=== PATIENT | male | born 1960 | race Asian ===

== ENCOUNTER 2019-03-18 17:32 | Inpatient (IN) | payer OTHER ==
[2019-03-18] MEDS ORDERED: NACL 0.9% 3 ML SYG IV (18:30)
[2019-03-18] MEDS ORDERED: morphine 2 MG INJ IV (18:30)
[2019-03-18] MEDS ORDERED: DOCUSATE SODIUM 100 MG CAP PO (18:30)
[2019-03-18] MEDS ORDERED: HYDROCODONE/APAP (5/325) TAB PO (18:30)
[2019-03-18] MEDS ORDERED: ONDANSETRON 4 MG INJ IV (18:30)
[2019-03-18] MEDS ORDERED: ZOLPIDEM 5 MG TAB PO (18:30)
[2019-03-18] MEDS ORDERED: ACETAMINOPHEN 325 MG TAB PO (18:30)
[2019-03-18] MEDS ORDERED: GLUCOSE GEL 15 GRAM TUBE PO ×2 (19:00)
[2019-03-18] MEDS ORDERED: GLUCAGON 1 MG INJ IM (19:00)
[2019-03-18] MEDS ORDERED: DEXTROSE 50% 50 ML SYRINGE IV ×2 (19:00)
[2019-03-18] MEDS ORDERED: GLUCOSE GEL 15 GRAM TUBE BUCCAL (19:00)
[2019-03-18] MEDS: SOD CHLORIDE 0.9% 1,000 ML IV (20:22)
[2019-03-18] MEDS: INSULIN ASPART [NOVOLOG] 3 ML PEN SC ×2 (21:05→23:03)
[2019-03-18] MEDS: INSULIN GLARGINE [LANTus] (100 UNITS/ML) SYG SC (23:04)
[2019-03-19] MEDS: ACCU-CHEK XX (02:06)
[2019-03-19] MEDS: SOD CHLORIDE 0.9% 1,000 ML IV ×2 (04:12→05:36)
[2019-03-19 05:29] LABS: ADD MAN DIFF? NO
[2019-03-19 05:36] LABS: WHITE BLOOD COUNT 7.4 10^3/ul (4.8-10.8)
[2019-03-19 05:36] LABS: BASOPHILS % 0.4 % (0.0-2.0); EOSINOPHILS # 0.1 10^3/ul (0.0-0.5); EOSINOPHILS % 1.6 % (0.0-7.0); HEMATOCRIT 30.3 % (42.0-52.0); HEMOGLOBIN 10.4 g/dl (14.0-18.0); LYMPHOCYTES # 1.4 10^3/ul (0.8-2.9); LYMPHOCYTES % 18.3 % (15.0-51.0); MEAN CORPUSCULAR HEMOGLOBIN 31.6 pg (29.0-33.0); MEAN CORPUSCULAR HGB CONC 34.3 g/dl (32.0-37.0); MEAN CORPUSCULAR VOLUME 92.1 fl (82.0-101.0); MEAN PLATELET VOLUME 9.1 fl (7.4-10.4); MONOCYTE # 0.7 10^3/ul (0.3-0.9); MONOCYTES % 8.9 % (0.0-11.0); NEUTROPHIL # 5.2 10^3/ul (1.6-7.5); NEUTROPHILS % 70.1 % (39.0-77.0); PLATELET COUNT 302 10^3/UL (140-415); RED BLOOD COUNT 3.29 10^6/ul (4.70-6.10)
[2019-03-19 05:56] LABS: AMMONIA < 9 umol/l (9-30)
[2019-03-19 06:05] LABS: ANION GAP 8 (5-13); BLOOD UREA NITROGEN 36 mg/dl (7-20); CALCIUM 8.5 mg/dl (8.4-10.2); CARBON DIOXIDE 24 mmol/L (21-31); CHLORIDE 102 mmol/L (97-110); CHOL/HDL RATIO 6.4 RATIO; CHOLESTEROL 193 mg/dl (100-200); CREATININE 2.16 mg/dl (0.61-1.24); Estimated GFR 32 mL/min (>60); GLUCOSE 202 mg/dl (70-220); HDL CHOLESTEROL 30 mg/dl (28-71); LDL CHOLESTEROL,CALCULATED 115 mg/dl; MAGNESIUM 2.1 mg/dl (1.7-2.5); PHOSPHORUS 3.9 mg/dl (2.5-4.9); POTASSIUM 4.1 mmol/L (3.5-5.1); SODIUM 134 mmol/L (135-144); TRIGLYCERIDES 242 mg/dl (0-149)
[2019-03-19] MEDS: INSULIN ASPART [NOVOLOG] 3 ML PEN SC ×6 (08:50→20:31)
[2019-03-19] MEDS ORDERED: hydrALAzine 20 MG INJ (09:54)
[2019-03-19] MEDS: hydrALAzine 20 MG INJ IV (09:58)
[2019-03-19] MEDS: AMLODIPINE 5 MG TAB PO (12:18)
[2019-03-19] MEDS: INSULIN GLARGINE [LANTus] (100 UNITS/ML) SYG SC ×2 (13:30→20:32)
[2019-03-19 17:02] LABS: RAPID PLASMA REAGIN NONREACTIVE (NR)
[2019-03-20] MEDS: SOD CHLORIDE 0.9% 1,000 ML IV ×4 (00:12→21:00)
[2019-03-20 01:16] LABS: CREATININE,URINE RANDOM 59.16 mg/dl (20-370)
[2019-03-20 01:16] LABS: SODIUM,URINE RANDOM 80 mmol/L (30-90)
[2019-03-20 01:21] LABS: ADD UMIC YES; UR ASCORBIC ACID NEGATIVE (NEGATIVE); UR BACTERIA MANY /HPF (NONE SEEN); UR BILIRUBIN (Dip) NEGATIVE (NEGATIVE); UR BLOOD (Dip) 1+ mg/dL (NEGATIVE); UR CLARITY SLIGHTLY CLOUDY (CLEAR); UR COLOR YELLOW (YELLOW); UR GLUCOSE (Dip) 3+ mg/dL (NEGATIVE); UR KETONES (Dip) NEGATIVE (NEGATIVE); UR LEUKOCYTE ESTERASE (Dip) NEGATIVE Leu/ul (NEGATIVE); UR MUCUS FEW /HPF (NONE SEEN); UR NITRITE (Dip) NEGATIVE (NEGATIVE); UR RBC 15 /HPF (0-5); UR SPECIFIC GRAVITY (Dip) 1.012 (1.003-1.030); UR TOTAL PROTEIN (Dip) 2+ mg/dl (NEGATIVE); UR UROBILINOGEN (Dip) NEGATIVE (NEGATIVE); UR WBC 11 /HPF (0-5)
[2019-03-20] MEDS: ACCU-CHEK XX (02:00)
[2019-03-20 06:53] LABS: MAGNESIUM 1.9 mg/dl (1.7-2.5)
[2019-03-20 06:53] LABS: PHOSPHORUS 4.2 mg/dl (2.5-4.9)
[2019-03-20 07:00] LABS: ANION GAP 9 (5-13); BLOOD UREA NITROGEN 34 mg/dl (7-20); CALCIUM 9.2 mg/dl (8.4-10.2); CARBON DIOXIDE 24 mmol/L (21-31); CHLORIDE 100 mmol/L (97-110); CREATININE 2.16 mg/dl (0.61-1.24); Estimated GFR 32 mL/min (>60); GLUCOSE 158 mg/dl (70-220); POTASSIUM 3.7 mmol/L (3.5-5.1); SODIUM 133 mmol/L (135-144)
[2019-03-20] MEDS: INSULIN ASPART [NOVOLOG] 3 ML PEN SC ×7 (08:28→20:10)
[2019-03-20] MEDS: AMLODIPINE 5 MG TAB PO (08:29)
[2019-03-20] MEDS: INSULIN GLARGINE [LANTus] (100 UNITS/ML) SYG SC (20:09)
[2019-03-21] MEDS: ACCU-CHEK XX (02:00)
[2019-03-21] MEDS: SOD CHLORIDE 0.9% 1,000 ML IV ×2 (02:24→05:37)
[2019-03-21 05:28] LABS: ADD MAN DIFF? NO
[2019-03-21 05:37] LABS: WHITE BLOOD COUNT 7.5 10^3/ul (4.8-10.8)
[2019-03-21 05:37] LABS: BASOPHILS % 0.5 % (0.0-2.0); EOSINOPHILS # 0.2 10^3/ul (0.0-0.5); EOSINOPHILS % 2.3 % (0.0-7.0); HEMATOCRIT 33.2 % (42.0-52.0); HEMOGLOBIN 11.7 g/dl (14.0-18.0); LYMPHOCYTES # 1.7 10^3/ul (0.8-2.9); MEAN CORPUSCULAR HEMOGLOBIN 31.9 pg (29.0-33.0); MEAN CORPUSCULAR HGB CONC 35.2 g/dl (32.0-37.0); MEAN CORPUSCULAR VOLUME 90.5 fl (82.0-101.0); MEAN PLATELET VOLUME 9.1 fl (7.4-10.4); MONOCYTE # 0.7 10^3/ul (0.3-0.9); MONOCYTES % 9.4 % (0.0-11.0); NEUTROPHIL # 4.9 10^3/ul (1.6-7.5); NEUTROPHILS % 64.6 % (39.0-77.0); PLATELET COUNT 300 10^3/UL (140-415); RED BLOOD COUNT 3.67 10^6/ul (4.70-6.10); RED CELL DISTRIBUTION WIDTH 11.7 % (11.5-14.5)
[2019-03-21 06:07] LABS: ANION GAP 10 (5-13); BLOOD UREA NITROGEN 30 mg/dl (7-20); CARBON DIOXIDE 21 mmol/L (21-31); CHLORIDE 102 mmol/L (97-110); CREATININE 1.96 mg/dl (0.61-1.24); Estimated GFR 36 mL/min (>60); GLUCOSE 126 mg/dl (70-220); MAGNESIUM 1.9 mg/dl (1.7-2.5); PHOSPHORUS 4.1 mg/dl (2.5-4.9); POTASSIUM 4.2 mmol/L (3.5-5.1); SODIUM 133 mmol/L (135-144)
[2019-03-21] MEDS: AMLODIPINE 5 MG TAB PO (08:28)
[2019-03-21] MEDS: INSULIN ASPART [NOVOLOG] 3 ML PEN SC ×7 (08:31→20:30)
[2019-03-21 17:27] LABS: CREATININE, RANDOM URINE 61 mg/dL (20-320); MICROALBUMIN 30.6 mg/dL; MICROALBUMIN/CREATININE RATIO 502 (<30)
[2019-03-21] MEDS: INSULIN GLARGINE [LANTus] (100 UNITS/ML) SYG SC (20:32)
[2019-03-22] MEDS: ACCU-CHEK XX (01:19)
[2019-03-22 06:05] LABS: ANION GAP 9 (5-13); BLOOD UREA NITROGEN 31 mg/dl (7-20); CALCIUM 9.1 mg/dl (8.4-10.2); CARBON DIOXIDE 22 mmol/L (21-31); CHLORIDE 104 mmol/L (97-110); CREATININE 2.24 mg/dl (0.61-1.24); Estimated GFR 30 mL/min (>60); GLUCOSE 121 mg/dl (70-220); MAGNESIUM 1.8 mg/dl (1.7-2.5); PHOSPHORUS 4.4 mg/dl (2.5-4.9); POTASSIUM 4.1 mmol/L (3.5-5.1); SODIUM 135 mmol/L (135-144)
[2019-03-22] MEDS: INSULIN ASPART [NOVOLOG] 3 ML PEN SC ×7 (08:08→20:11)
[2019-03-22] MEDS: AMLODIPINE 5 MG TAB PO (08:09)
[2019-03-22] MEDS: INSULIN GLARGINE [LANTus] (100 UNITS/ML) SYG SC (20:12)
[2019-03-23] MEDS: ACCU-CHEK XX (01:01)
[2019-03-23 06:05] LABS: ADD MAN DIFF? NO
[2019-03-23 06:23] LABS: WHITE BLOOD COUNT 6.6 10^3/ul (4.8-10.8)
[2019-03-23 06:23] LABS: BASOPHILS % 0.6 % (0.0-2.0); EOSINOPHILS # 0.2 10^3/ul (0.0-0.5); EOSINOPHILS % 2.3 % (0.0-7.0); HEMATOCRIT 31.3 % (42.0-52.0); HEMOGLOBIN 10.8 g/dl (14.0-18.0); LYMPHOCYTES # 1.9 10^3/ul (0.8-2.9); MEAN CORPUSCULAR HEMOGLOBIN 31.4 pg (29.0-33.0); MEAN CORPUSCULAR HGB CONC 34.5 g/dl (32.0-37.0); MEAN PLATELET VOLUME 8.8 fl (7.4-10.4); MONOCYTE # 0.6 10^3/ul (0.3-0.9); MONOCYTES % 9.4 % (0.0-11.0); NEUTROPHIL # 3.9 10^3/ul (1.6-7.5); NEUTROPHILS % 58.5 % (39.0-77.0); PLATELET COUNT 317 10^3/UL (140-415); RED BLOOD COUNT 3.44 10^6/ul (4.70-6.10); RED CELL DISTRIBUTION WIDTH 11.8 % (11.5-14.5)
[2019-03-23 07:21] LABS: ANION GAP 11 (5-13); BLOOD UREA NITROGEN 37 mg/dl (7-20); CALCIUM 9.4 mg/dl (8.4-10.2); CARBON DIOXIDE 22 mmol/L (21-31); CHLORIDE 103 mmol/L (97-110); CREATININE 2.27 mg/dl (0.61-1.24); Estimated GFR 30 mL/min (>60); GLUCOSE 106 mg/dl (70-220); MAGNESIUM 2.1 mg/dl (1.7-2.5); PHOSPHORUS 4.8 mg/dl (2.5-4.9); SODIUM 136 mmol/L (135-144)
[2019-03-23] MEDS: INSULIN ASPART [NOVOLOG] 3 ML PEN SC ×7 (08:41→20:31)
[2019-03-23] MEDS: AMLODIPINE 5 MG TAB PO (08:42)
[2019-03-23] MEDS: INSULIN GLARGINE [LANTus] (100 UNITS/ML) SYG SC (20:30)
[2019-03-24] MEDS: ACCU-CHEK XX (02:00)
[2019-03-24 05:21] LABS: ADD MAN DIFF? NO
[2019-03-24 05:30] LABS: BASOPHILS % 0.6 % (0.0-2.0); EOSINOPHILS # 0.2 10^3/ul (0.0-0.5); EOSINOPHILS % 2.5 % (0.0-7.0); HEMATOCRIT 33.3 % (42.0-52.0); HEMOGLOBIN 11.5 g/dl (14.0-18.0); LYMPHOCYTES # 1.9 10^3/ul (0.8-2.9); LYMPHOCYTES % 27.3 % (15.0-51.0); MEAN CORPUSCULAR HEMOGLOBIN 31.5 pg (29.0-33.0); MEAN CORPUSCULAR HGB CONC 34.5 g/dl (32.0-37.0); MEAN CORPUSCULAR VOLUME 91.2 fl (82.0-101.0); MEAN PLATELET VOLUME 8.8 fl (7.4-10.4); MONOCYTE # 0.7 10^3/ul (0.3-0.9); MONOCYTES % 10.5 % (0.0-11.0); NEUTROPHILS % 57.6 % (39.0-77.0); PLATELET COUNT 352 10^3/UL (140-415); RED BLOOD COUNT 3.65 10^6/ul (4.70-6.10); RED CELL DISTRIBUTION WIDTH 11.6 % (11.5-14.5)
[2019-03-24 05:30] LABS: WHITE BLOOD COUNT 6.9 10^3/ul (4.8-10.8)
[2019-03-24 05:59] LABS: ANION GAP 11 (5-13); BLOOD UREA NITROGEN 38 mg/dl (7-20); CALCIUM 9.4 mg/dl (8.4-10.2); CARBON DIOXIDE 23 mmol/L (21-31); CHLORIDE 102 mmol/L (97-110); CREATININE 2.41 mg/dl (0.61-1.24); Estimated GFR 28 mL/min (>60); GLUCOSE 121 mg/dl (70-220); MAGNESIUM 2.2 mg/dl (1.7-2.5); PHOSPHORUS 5.6 mg/dl (2.5-4.9); POTASSIUM 4.2 mmol/L (3.5-5.1); SODIUM 136 mmol/L (135-144)
[2019-03-24] MEDS: INSULIN ASPART [NOVOLOG] 3 ML PEN SC ×7 (08:15→20:06)
[2019-03-24] MEDS: AMLODIPINE 5 MG TAB PO (08:17)
[2019-03-24] MEDS: INSULIN GLARGINE [LANTus] (100 UNITS/ML) SYG SC (20:06)
[2019-03-24] MEDS: POLYETHYLENE GLYCOL 17 GM PACKET PO (21:58)
[2019-03-24] MEDS: BISACODYL (EC) 5 MG TAB PO (21:58)
[2019-03-25] MEDS: ACCU-CHEK XX (02:00)
[2019-03-25 05:39] LABS: ADD MAN DIFF? NO
[2019-03-25 05:46] LABS: WHITE BLOOD COUNT 6.6 10^3/ul (4.8-10.8)
[2019-03-25 05:46] LABS: BASOPHILS % 0.6 % (0.0-2.0); EOSINOPHILS # 0.2 10^3/ul (0.0-0.5); EOSINOPHILS % 2.4 % (0.0-7.0); HEMATOCRIT 33.1 % (42.0-52.0); HEMOGLOBIN 11.5 g/dl (14.0-18.0); LYMPHOCYTES # 1.7 10^3/ul (0.8-2.9); LYMPHOCYTES % 25.5 % (15.0-51.0); MEAN CORPUSCULAR HEMOGLOBIN 31.7 pg (29.0-33.0); MEAN CORPUSCULAR HGB CONC 34.7 g/dl (32.0-37.0); MEAN CORPUSCULAR VOLUME 91.2 fl (82.0-101.0); MEAN PLATELET VOLUME 8.9 fl (7.4-10.4); MONOCYTE # 0.7 10^3/ul (0.3-0.9); MONOCYTES % 9.9 % (0.0-11.0); NEUTROPHILS % 60.1 % (39.0-77.0); PLATELET COUNT 368 10^3/UL (140-415); RED BLOOD COUNT 3.63 10^6/ul (4.70-6.10); RED CELL DISTRIBUTION WIDTH 11.7 % (11.5-14.5)
[2019-03-25 06:11] LABS: ANION GAP 10 (5-13); BLOOD UREA NITROGEN 47 mg/dl (7-20); CALCIUM 9.4 mg/dl (8.4-10.2); CARBON DIOXIDE 23 mmol/L (21-31); CHLORIDE 101 mmol/L (97-110); CREATININE 2.73 mg/dl (0.61-1.24); Estimated GFR 24 mL/min (>60); GLUCOSE 129 mg/dl (70-220); MAGNESIUM 2.3 mg/dl (1.7-2.5); PHOSPHORUS 5.5 mg/dl (2.5-4.9); POTASSIUM 4.7 mmol/L (3.5-5.1); SODIUM 134 mmol/L (135-144)
[2019-03-25] MEDS: BISACODYL (EC) 5 MG TAB PO (08:21)
[2019-03-25] MEDS: POLYETHYLENE GLYCOL 17 GM PACKET PO ×2 (08:21→20:28)
[2019-03-25] MEDS: AMLODIPINE 5 MG TAB PO (08:22)
[2019-03-25] MEDS: INSULIN ASPART [NOVOLOG] 3 ML PEN SC ×7 (08:24→20:25)
[2019-03-25] MEDS: BISACODYL 10 MG SUPP PR (11:12)
[2019-03-25] MEDS ORDERED: MINERAL OIL 133 ML ENEMA PR (13:00)
[2019-03-25] MEDS: LACTULOSE 30ML CUP PO ×2 (14:33→20:25)
[2019-03-25] MEDS: ENOXAPARIN 30 MG/0.3 ML SYG SC (14:36)
[2019-03-25 20:09] LABS: ADD UMIC YES; UR ASCORBIC ACID NEGATIVE (NEGATIVE); UR BACTERIA FEW /HPF (NONE SEEN); UR BILIRUBIN (Dip) NEGATIVE (NEGATIVE); UR BLOOD (Dip) 1+ mg/dL (NEGATIVE); UR CLARITY SLIGHTLY CLOUDY (CLEAR); UR COLOR STRAW (YELLOW); UR GLUCOSE (Dip) 3+ mg/dL (NEGATIVE); UR KETONES (Dip) NEGATIVE (NEGATIVE); UR LEUKOCYTE ESTERASE (Dip) NEGATIVE Leu/ul (NEGATIVE); UR MUCUS FEW /HPF (NONE SEEN); UR NITRITE (Dip) NEGATIVE (NEGATIVE); UR RBC 14 /HPF (0-5); UR SPECIFIC GRAVITY (Dip) 1.011 (1.003-1.030); UR TOTAL PROTEIN (Dip) 1+ mg/dl (NEGATIVE); UR UROBILINOGEN (Dip) NEGATIVE (NEGATIVE); UR WBC 5 /HPF (0-5)
[2019-03-25 20:10] LABS: SODIUM,URINE RANDOM 51 mmol/L (30-90)
[2019-03-25 20:10] LABS: CREATININE,URINE RANDOM 63.36 mg/dl (20-370)
[2019-03-25] MEDS: INSULIN GLARGINE [LANTus] (100 UNITS/ML) SYG SC (20:23)
[2019-03-25] MEDS: FAMOTIDINE 20 MG TAB PO (20:25)
[2019-03-26] MEDS: ACCU-CHEK XX (02:24)
[2019-03-26 05:24] LABS: ADD MAN DIFF? NO
[2019-03-26 05:38] LABS: BASOPHIL # 0.1 10^3/ul (0.0-0.1); BASOPHILS % 0.7 % (0.0-2.0); EOSINOPHILS # 0.2 10^3/ul (0.0-0.5); HEMATOCRIT 29.9 % (42.0-52.0); HEMOGLOBIN 10.5 g/dl (14.0-18.0); LYMPHOCYTES # 1.9 10^3/ul (0.8-2.9); MEAN CORPUSCULAR HGB CONC 35.1 g/dl (32.0-37.0); MEAN CORPUSCULAR VOLUME 91.2 fl (82.0-101.0); MEAN PLATELET VOLUME 8.9 fl (7.4-10.4); MONOCYTE # 0.7 10^3/ul (0.3-0.9); MONOCYTES % 9.7 % (0.0-11.0); NEUTROPHIL # 4.7 10^3/ul (1.6-7.5); NEUTROPHILS % 61.3 % (39.0-77.0); PLATELET COUNT 348 10^3/UL (140-415); RED BLOOD COUNT 3.28 10^6/ul (4.70-6.10); RED CELL DISTRIBUTION WIDTH 11.7 % (11.5-14.5)
[2019-03-26 05:38] LABS: WHITE BLOOD COUNT 7.7 10^3/ul (4.8-10.8)
[2019-03-26 06:31] LABS: ANION GAP 13 (5-13); BLOOD UREA NITROGEN 47 mg/dl (7-20); CARBON DIOXIDE 18 mmol/L (21-31); CHLORIDE 101 mmol/L (97-110); CREATININE 2.77 mg/dl (0.61-1.24); Estimated GFR 24 mL/min (>60); GLUCOSE 187 mg/dl (70-220); MAGNESIUM 2.2 mg/dl (1.7-2.5); PHOSPHORUS 5.9 mg/dl (2.5-4.9); POTASSIUM 4.2 mmol/L (3.5-5.1); SODIUM 132 mmol/L (135-144)
[2019-03-26] MEDS: BISACODYL (EC) 5 MG TAB PO (08:13)
[2019-03-26] MEDS: POLYETHYLENE GLYCOL 17 GM PACKET PO (08:13)
[2019-03-26] MEDS: LACTULOSE 30ML CUP PO (08:13)
[2019-03-26] MEDS: AMLODIPINE 5 MG TAB PO (08:15)
[2019-03-26] MEDS: ENOXAPARIN 30 MG/0.3 ML SYG SC (08:18)
[2019-03-26] MEDS: INSULIN ASPART [NOVOLOG] 3 ML PEN SC ×6 (08:45→17:43)
[2019-03-27 15:42] LABS: CREATININE, RANDOM URINE 66 mg/dL (20-320); MICROALBUMIN 27.6 mg/dL; MICROALBUMIN/CREATININE RATIO 418 (<30)
== END 2019-03-26 19:15 | DRG 638 ==
LOC: MS3 17:32
PROVIDERS: Internal Medicine
DX: E11.10 Type 2 diabetes mellitus with ketoacidosis without coma (principal); N17.9 Acute kidney failure, unspecified; E87.1 Hypo-osmolality and hyponatremia; G93.40 Encephalopathy, unspecified; E88.81 Metabolic syndrome and other insulin resistance; N18.9 Chronic kidney disease, unspecified; D64.9 Anemia, unspecified; R62.7 Adult failure to thrive; I12.9 Hypertensive chronic kidney disease with stage 1 through stage 4 chronic kidney disease, or unspecified chronic kidney disease; E11.22 Type 2 diabetes mellitus with diabetic chronic kidney disease; Z68.23 Body mass index [BMI] 23.0-23.9, adult; Z79.4 Long term (current) use of insulin
CPT/HCPCS: 70450; 76775; 80048; 80061; 81001; 81003; 82043; 82140; 82607; 82962; 83036; 83735; 84100; 84155; 84300; 85025; 86592; 87081; 97161; 97167